=== PATIENT | female | born 1945 | race Caucasian/White ===

== ENCOUNTER → 2016-11-09 | Outpatient (CLI) | payer OTHER ==
[~2016-11-09] MED LIST: ALPR-411 PO; ASPI81TA28 PO; BENZ100C84 PO; CLR10 PO; LEVAAER2 INH; MECL1TAB42 PO; METO25TA56 PO; PRAV40TA2 PO; ZNT/150 PO
--- NOTE | 2016-11-09 09:47 | DIAGNOSTIC IMAGING REPORT ---
CHEST CT WITHOUT CONTRAST CT DOSE: 366.69 mGycm HISTORY: R91.1 Pulmonary nodule TECHNIQUE: Multiaxial CT images of the chest were performed without contrast. COMPARISON: Chest CT 05/10/2016. FINDINGS: There is a new 7 mm nodule at the base of the left lower lobe on image 228. Expected volume loss within the right hemithorax status post right upper lobectomy. Scattered linear scarlike densities are again noted within the residual right lung. This remains unchanged. The central airways are patent. Partial atelectasis of the right lower lobe persists. No pneumothorax. Emphysema. The trace right pleural effusion has essentially resolved in the interval. Prior cholecystectomy. The visualized liver and spleen are unremarkable. Normal adrenal glands. Bilateral peripelvic renal cysts. The heart is normal in size. Subcentimeter mediastinal lymph nodes do not meet CT criteria for pathologic involvement. These remain unchanged. No suspicious lytic or blastic osseous lesions. IMPRESSION: 1. There is a new 7 mm nodule at the base of the left lower lobe. Recommend one to [address] follow-up to exclude a metastatic focus. 2. Stable postoperative changes within the right hemithorax. 3. Emphysema. Electronically signed by: Leo Rosales M.D. 11/09/2016 9:45 AM
== END | disposition home or self-care (01) ==
LOC: C.CTS 09:29
PROVIDERS: ATTEND Internal Medicine
DX: R91.1 Solitary pulmonary nodule (principal); J43.9 Emphysema, unspecified

== ENCOUNTER → 2017-01-09 | Outpatient (CLI) | payer OTHER ==
--- NOTE | 2017-01-09 12:33 | DIAGNOSTIC IMAGING REPORT ---
CHEST CT WITHOUT CONTRAST CT DOSE: 383.41 mGycm HISTORY: LUNG CANCER TECHNIQUE: Multiaxial CT images of the chest were performed without contrast. COMPARISON: Chest CT 11/09/2016. FINDINGS: There again noted postoperative changes consistent with a prior right upper lobectomy. Mild emphysema. Trace right pleural effusion, unchanged. No pneumothorax. Limited views of the upper abdomen demonstrate a normal liver and spleen. The adrenal glands are unremarkable. Cholecystectomy. Small hiatus hernia. Right mediastinal shift is due to the postoperative changes. Mediastinal lymph nodes remain unchanged in size and measure subcentimeter in short axis diameter. Therefore, these do not meet CT criteria for pathologic involvement. Normal caliber thoracic aorta. No suspicious lytic or blastic osseous lesions. The dominant 7 mm nodule seen within the base of the left lower lobe has almost completely resolved in the interval. Small focus of tree-in-bud nodules seen within the right lower lobe posteriorly which are new from the prior study. The right lower lobe lateral groundglass nodules have essentially resolved. IMPRESSION: 1. The 7 mm nodule within the base of the left lower lobe has almost completely resolved in the interval. Therefore, this favors resolving inflammatory/infectious change. 2. No suspicious pulmonary nodules identified to suggest metastatic disease. 3. A new small cluster of tree-in-bud nodules within the right lower lobe consistent with mild infectious/inflammatory change. This could be due to aspiration. 4. Postoperative changes within the right hemithorax. 5. Emphysema. Electronically signed by: Leo Rosales M.D. 01/09/2017 12:31 PM Dictated Date/Time: 01/09/2017 12:24 PM
== END | disposition home or self-care (01) ==
LOC: C.CTS 12:04
PROVIDERS: ATTEND Surgery
DX: R91.8 Other nonspecific abnormal finding of lung field (principal); J43.9 Emphysema, unspecified

== ENCOUNTER → 2017-04-11 | Outpatient (CLI) | payer OTHER ==
--- NOTE | 2017-04-11 10:34 | DIAGNOSTIC IMAGING REPORT ---
CT OF THE CHEST WITHOUT IV CONTRAST CLINICAL HISTORY: Lung cancer. Left lower lung mass. COMPARISON STUDY: Chest CT January 09, 2017. CT DOSE: 334.98 mGy.cm TECHNIQUE: Axial images of the chest were obtained without IV contrast. Images were reviewed in the axial, sagittal, and coronal planes. IV contrast was not administered for this examination. FINDINGS: Findings consistent with a right upper lobectomy are noted. The postoperative appearance is unchanged. No enlarged axillary, mediastinal or hilar lymph nodes are present. There is no consolidation to suggest pneumonia. Left lower lobe opacities shown on earlier exams have nearly completely resolved. There are no suspicious findings on this examination. A 3 mm left upper lobe nodule shown on image 75 of 301 is unchanged since earlier exams. This is likely benign. No suspicious osseous lesions are present. A suspected bone island within T9 is unchanged. Upper abdomen is unremarkable on this unenhanced exam. IMPRESSION: 1. No evidence of recurrent malignancy status post right upper lobectomy. 2. Near complete resolution of the left lower lobe opacity shown on earlier exams consistent with an infectious/inflammatory etiology. 3. Moderate emphysema. Electronically signed by: Ambrosio Elizalde M.D. 04/11/2017 10:33 AM Dictated Date/Time: 04/11/2017 10:21 AM
== END | disposition home or self-care (01) ==
LOC: C.CTS 10:04
PROVIDERS: ATTEND Surgery
DX: R91.8 Other nonspecific abnormal finding of lung field (principal); R91.1 Solitary pulmonary nodule; Z85.118 Personal history of other malignant neoplasm of bronchus and lung; Z90.2 Acquired absence of lung [part of]

== ENCOUNTER → 2017-11-23 | Outpatient (CLI) | payer OTHER ==
--- NOTE | 2017-11-23 12:23 | DIAGNOSTIC IMAGING REPORT ---
(CHEST) THORAX WITHOUT CT DOSE: 416.10 mGy.cm CLINICAL HISTORY: 72 years-old Female with C34.91 Adenocarcinoma of right [id number]. Follow-up study in a patient with history of adenocarcinoma of the right lung. History of prior right upper lobectomy. TECHNIQUE: Multiaxial CT images of the chest were performed without contrast. A dose lowering technique was utilized adhering to the principles of ALARA. COMPARISON: CT chest 04/11/2016. FINDINGS: Thyroid is homogeneous. No pathologically enlarged lymph nodes by CT size criteria. Heart is normal in size with coronary arterial calcifications present. Atherosclerosis of the aorta is noted which appears mild. Moderate emphysema. Postoperative changes from prior right upper lobectomy with mild loss of the right lung and rightward mediastinal shift with compensatory hyperinflation of the left lung. No pneumothorax, pleural effusion, or focal airspace consolidation. Ill-defined 6 cm groundglass opacity of the left lower lobe appears unchanged from comparison which can be seen on image 184 series 4 from comparison study and appears slightly more apparent on today's exam. Peripheral distribution of groundglass and nodular opacities are present within the lateral right lung base. The central airways are patent. There is an 8 x 6 mm nodule adjacent to the suture material at the level the fletcher nicely seen on image 106 series 4 which has increased in size from prior study, previously measuring 5 x 3 mm on study dated 04/11/2017 nicely seen on image 99 series 4 that study. On prior study this appeared to represent an area of focal scarring. Imaged upper abdominal structures demonstrate no acute abnormality. Moderate generalized atrophy of the pancreas. Hepatic steatosis. Soft tissues are unremarkable. Bones appear intact without suspicious lytic or blastic bony lesions. IMPRESSION: 1. 8 x 6 mm solid pulmonary nodule adjacent to the suture material of the right lower lobe at the level of the fletcher is suspicious for local disease recurrence. Attention at follow-up is needed. 2. Peripheral distribution of groundglass and nodular opacities of the lateral basal segment right lower lobe suggests infectious or inflammatory pneumonitis. This also warrants attention at follow-up to exclude progressive abnormality. 3. Postoperative changes from prior right upper lobectomy. 4. Emphysema. 5. No pathologic adenopathy identified. 6. Ill-defined 6 mm groundglass nodule of the left lower lobe. Electronically signed by: Aris Loza M.D. 11/23/2017 12:22 PM Dictated Date/Time: 11/23/2017 12:10 PM
== END | disposition home or self-care (01) ==
LOC: C.CTS 11:59
PROVIDERS: ATTEND Surgery
DX: C34.91 Malignant neoplasm of unspecified part of right bronchus or lung (principal)

== ENCOUNTER → 2018-02-26 | Outpatient (CLI) | payer OTHER ==
--- NOTE | 2018-02-26 09:01 | DIAGNOSTIC IMAGING REPORT ---
CT OF THE CHEST WITHOUT IV CONTRAST CLINICAL HISTORY: Adenocarcinoma of right lung. Mass of the lower lobe of left lung. COMPARISON STUDY: Chest CT November 23, 2017. CT DOSE: 413.39 mGy.cm TECHNIQUE: Axial images of the chest were obtained without IV contrast. Images were reviewed in the axial, sagittal, and coronal planes. IV contrast was not administered for this examination. A dose lowering technique was utilized adhering to the principles of ALARA. FINDINGS: Note is made of postoperative findings consistent with a right upper lobectomy. No enlarged axillary, mediastinal or hilar lymph nodes are noted. A 1.2 x 0.7 cm solid pulmonary nodule adjacent to suture material within the right lower lobe at the level of the fletcher has increased in size since exam of November 23, 2017 when it measured 0.8 x 0.6 cm. This nodule is shown on image 97 of 321. A 3 mm right lower lobe nodule shown on image 226 of 321 is unchanged. A few small groundglass opacities within the left lower lobe measuring up to 8 mm are similar to exam of November 23, 2017. Right lung linear groundglass opacities favor scarring or atelectasis. There is no consolidation to suggest pneumonia. Severe emphysema is noted. No suspicious osseous lesions are present. Upper abdomen is unremarkable. Gallbladder is surgically absent. IMPRESSION: 1. Interval increase in size of a 1.2 x 0.7 cm solid pulmonary nodule within the right lower lobe at the level of the fletcher which is highly suggestive of recurrent malignancy. 2. No change in a few small groundglass opacities within the left lower lobe since exam of November 23, 2017. These can be assessed on subsequent exams. 3. No thoracic lymphadenopathy status post right upper lobectomy. Electronically signed by: Ambrosio Elizalde M.D. 02/26/2018 9:00 AM Dictated Date/Time: 02/26/2018 8:45 AM
== END | disposition home or self-care (01) ==
LOC: C.CTS 08:26
PROVIDERS: ATTEND Surgery
DX: C34.91 Malignant neoplasm of unspecified part of right bronchus or lung (principal); R91.8 Other nonspecific abnormal finding of lung field

== ENCOUNTER → 2018-07-02 | Outpatient (CLI) | payer OTHER ==
[~2018-07-02] MED LIST changes: +ACET-1256 PO; -BENZ100C84 PO; +CYAN500T PO; +LEVA45AE PO; -LEVAAER2 INH; +MONT1TAB5 PO; +POLY335025 PEG
--- NOTE | 2018-07-02 10:37 | DIAGNOSTIC IMAGING REPORT ---
(CHEST) THORAX WITHOUT CT DOSE: 399.70 mGycm HISTORY: Lung nodules PULMONARY NODULE TECHNIQUE: Multiaxial CT images of the chest were performed without contrast. A dose lowering technique was utilized adhering to the principles of ALARA. COMPARISON: 02/26/2018 FINDINGS: Unchanged postoperative changes consistent with a right upper lobectomy are noted. Nodular density adjacent to the right fletcher currently measures 9 x 8 mm. This is slightly diminished compared to the prior study. All additional nodular densities previous described are stable to slightly diminished in volume. There are no new or interval findings. There is no significant mediastinal or hilar adenopathy. IMPRESSION: Stable to slightly improved exam. The nodularity previously described is stable to slightly improved as discussed. No new or interval findings are present. The above report was generated using voice recognition software. It may contain grammatical, syntax or spelling errors. Electronically signed by: Casa Hardy M.D. 07/02/2018 10:36 AM Dictated Date/Time: 07/02/2018 10:28 AM
== END | disposition home or self-care (01) ==
LOC: C.CTS 10:08
PROVIDERS: ATTEND Surgery
DX: C34.91 Malignant neoplasm of unspecified part of right bronchus or lung (principal)